=== PATIENT | male | born 1940 ===

== ENCOUNTER 2016-08-25 16:13 | Inpatient (IN) | payer OTHER ==
[~2016-08-25] VITALS: Ht 172.7 cm; Wt 117.9 kg
[2016-08-25 16:44] LABS: BASOPHIL % 0.7 % (0-2); PLATELET COUNT 242 x10^3mcL (130-400); RED CELL DISTRIBUTION WIDTH 15.2 % (11.5-14.5)
[2016-08-25 16:58] LABS: CARBON DIOXIDE 21.6 mmol/L (21-32); CHLORIDE SERUM 104 mmol/L (98-107); CREATININE SERUM 1.2 mg/dL (0.7-1.3); GLUCOSE SERUM 119 mg/dL (74-106); POTASSIUM SERUM 3.9 mmol/L (3.5-5.1); SODIUM SERUM 139 mmol/L (136-145)
[2016-08-25 17:05] LABS: ALKALINE PHOSPHATASE 82 U/L (46-116); ALT/SGPT 21 U/L (16-63); AST/SGOT 18 U/L (15-37); BILIRUBIN TOTAL 0.9 mg/dL (0.20-1.00); TOTAL PROTEIN, SERUM 7.2 g/dL (6.4-8.2)
[2016-08-25 17:09] LABS: ALBUMIN 2.9 g/dL (3.4-5.0)
[2016-08-25 17:10] LABS: MAGNESIUM 1.7 mg/dL (1.8-2.4); PHOSPHOROUS 2.2 mg/dL (2.5-4.9)
[2016-08-25] MEDS ORDERED: GLUCOPHAGE XR500 MG PO (17:13)
[2016-08-25] MEDS ORDERED: BENAZEPRIL HYDR20 M1 PO (17:13)
[2016-08-25] MEDS ORDERED: COUMADIN5 MG PO (17:14)
[2016-08-25] MEDS ORDERED: ZOLOFT50 MG PO (17:14)
[2016-08-25] MEDS ORDERED: METOPROLOL SUCC50 M2 PO (17:14)
[2016-08-25] MEDS ORDERED: PRAVASTATIN SOD10 M1 PO (17:14)
[2016-08-25] MEDS ORDERED: MIRALAX17 GM/Dose PO (17:15)
[2016-08-25] MEDS ORDERED: LATANOPROST2.5 ML OU (17:15)
[2016-08-25] MEDS ORDERED: LORAZEPAM0.5 MG PO (17:15)
[2016-08-25] MEDS ORDERED: FISH OIL1000 MG PO (17:15)
[2016-08-25] MEDS ORDERED: VITAMIN D32000 I2 PO (17:16)
[2016-08-25] MEDS ORDERED: GLUCOSAMINE CH1 EAC2 PO (17:16)
[2016-08-25] MEDS ORDERED: CLARITIN10 MG PO (17:16)
[2016-08-25 18:59] LABS: T3 TOTAL 0.79 ng/mL
[2016-08-25 19:01] LABS: FREE T4 1.54 ng/dL (0.76-1.46); FREE THYROXINE INDEX 2.8 ug/dL (1.4-4.5); T4(THYROXINE) 7.2 ug/dL (4.7-13.3)
[2016-08-25 19:02] VITALS: BP 141/75
[2016-08-25 19:08] VITALS: Ht 172.7 cm; Wt 117.9 kg
[2016-08-25 22:00] VITALS: BP 144/79
[2016-08-26 06:04] LABS: BASOPHIL % 0.4 % (0-2); PLATELET COUNT 220 x10^3mcL (130-400)
[2016-08-26 06:10] VITALS: BP 136/79
[2016-08-26 06:18] LABS: CALCIUM 8.7 mg/dL (8.5-10.1); CARBON DIOXIDE 26.8 mmol/L (21-32); CHLORIDE SERUM 105 mmol/L (98-107); CREATININE SERUM 1.1 mg/dL (0.7-1.3); GLUCOSE SERUM 146 mg/dL (74-106); MAGNESIUM 2.1 mg/dL (1.8-2.4); PHOSPHOROUS 3.3 mg/dL (2.5-4.9); POTASSIUM SERUM 4.1 mmol/L (3.5-5.1); SODIUM SERUM 140 mmol/L (136-145)
[2016-08-26 06:52] LABS: RED CELL DISTRIBUTION WIDTH 15.1 % (11.5-14.5)
[2016-08-26 09:14] VITALS: BP 125/80
[2016-08-26 14:12] VITALS: BP 107/56
[2016-08-26 14:24] LABS: UA SPECIFIC GRAVITY 1.025 (1.005-1.035); microscopic required? YES; urine erythrocyte 3+ (NEGATIVE)
[2016-08-26 14:33] LABS: AMPHETAMINE QUAL UR NONE DETECTED (NEG <=1000)
[2016-08-26] MEDS ORDERED: CLA10 PO (15:46)
[2016-08-26] MEDS ORDERED: ZOS3PM IV (15:47)
[2016-08-26] MEDS ORDERED: LAC PO (15:47)
[2016-08-26 16:44] VITALS: BP 107/56
[2016-08-26 16:58] VITALS: BP 95/62
[2016-08-26 20:32] VITALS: BP 146/75
== END 2016-08-26 21:24 | disposition short-term general hospital (02) | DRG 64 ==
LOC: ED 16:13 → DU 18:01
PROVIDERS: Emergency Medicine; ADMIT Family Medicine
DX: I63.9 Cerebral infarction, unspecified (principal); J69.0 Pneumonitis due to inhalation of food and vomit; I50.43 Acute on chronic combined systolic (congestive) and diastolic (congestive) heart failure; E44.0 Moderate protein-calorie malnutrition; Z68.41 Body mass index [BMI] 40.0-44.9, adult; I11.0 Hypertensive heart disease with heart failure; T45.515A Adverse effect of anticoagulants, initial encounter; E11.65 Type 2 diabetes mellitus with hyperglycemia; E11.59 Type 2 diabetes mellitus with other circulatory complications; I48.2 Chronic atrial fibrillation; E83.39 Other disorders of phosphorus metabolism; E83.42 Hypomagnesemia; E66.9 Obesity, unspecified; Z79.01 Long term (current) use of anticoagulants; Z79.84 Long term (current) use of oral hypoglycemic drugs; Y92.009 Unspecified place in unspecified non-institutional (private) residence as the place of occurrence of the external cause
CPT/HCPCS: 82962; 83880; 84439; 94150; 97110-GP; J1940; J2543; J3475; J7030; J7040; J7620; Q0092